=== PATIENT | female | born 1935 | race Caucasian/White ===

== ENCOUNTER 2017-09-25 19:40 | Observation (INO) | payer OTHER ==
[~2017-09-25] VITALS: Ht 157.5 cm; Wt 69.7 kg
[2017-09-25 20:39] LABS: APPEARANCE CLEAR ((CLEAR)); BILIRUBIN NEGATIVE; BLOOD SMALL; COLOR STRAW ((YELLOW)); GLUCOSE (STRIP) NEGATIVE; KETONES NEGATIVE; LEUKOCYTES NEGATIVE; NITRITE NEGATIVE; PROTEIN (STRIP) NEGATIVE; SPECIFIC GRAVITY 1.008 (1.000-1.030); UROBILINOGEN 0.2 MG/DL (0.2-1.0)
[2017-09-25 20:44] LABS: BASOPHIL (%) 0.7 % (0-1); EOSINOPHIL (%) 0.5 % (0-5); HEMOGLOBIN 11.4 G/DL (11.9-15.5); IMMATURE GRANULOCYTE (%) 0.5 % (0.0-0.7); LYMPHOCYTE (%) 15.3 % (15-42); LYMPHOCYTE COUNT 0.9 K/uL (1.0-2.8); MCH 28.5 PG (29.0-34.0); MCHC 31.7 G/DL (30.0-36.0); MONOCYTE (%) 9.6 % (3-12); MONOCYTE COUNT 0.6 K/uL (0-0.8); NEUTROPHIL (%) 73.4 % (45-76); NEUTROPHIL COUNT 4.4 K/uL (1.8-6.4); PLATELET COUNT 296 K/uL (156-360); RBC DIS.WIDTH-CV 13.1 % (11.8-14.6); RBC DIS.WIDTH-SD 43.3 % (39-53)
[2017-09-25 20:51] LABS: BACTERIA NONE SEEN /HPF; EPITHELIAL CELLS RARE /HPF; MUCUS NONE SEEN /LPF; RED BLOOD CELLS 0-5 /HPF (0-5); UCUL ADDED? NO; WHITE BLOOD CELLS 0-5 /HPF (0-5)
[2017-09-25 20:55] LABS: PTT 27.5 SEC (25-37)
[2017-09-25 20:56] LABS: CHLORIDE 102 mEq/L (99-109); POTASSIUM 4.2 mEq/L (3.7-5.4); SODIUM 135 mEq/L (136-147)
[2017-09-25 20:58] LABS: GLUCOSE 102 mg/dL (70-99)
[2017-09-25 21:02] LABS: GFR ESTIMATE (CALCULATED) 57 mL/min/; UREA NITROGEN (BUN) 18 mg/dL (9-23)
[2017-09-25 21:04] LABS: TROP-I INTERPRETATION NEGATIVE; TROPONIN-I < 0.01 ng/mL (0.0-0.30)
[2017-09-25] MEDS ORDERED: SIMVASTATIN20 MG PO (22:18)
[2017-09-25] MEDS ORDERED: COLACE100 MG PO (22:19)
[2017-09-25] MEDS ORDERED: [UNRECOGNIZED DRUG - OTHER] PO (22:19)
[2017-09-25] MEDS ORDERED: TYLENOL EXTRA500 MG PO (22:19)
[2017-09-25] MEDS ORDERED: METAMUCIL0.52 GM PO (22:19)
[2017-09-25] MEDS ORDERED: VITAMIN A8000 UNIT PO (22:19)
[2017-09-25] MEDS ORDERED: PROTONIX40 MG PO (22:19)
[2017-09-26 02:11] LABS: HDL CHOLESTEROL 69 MG/DL (Desirable>=50); LDL CHOLESTEROL 99 mg/dL (Desirable<100); NON-HDL CHOLESTEROL 118 mg/dL (Desirable<160); TOTAL CHOLESTEROL 187 mg/dL (Desirable<200); TRIGLYCERIDES 96 MG/DL (Normal: <150)
[2017-09-26 04:27] VITALS: BP 184/84
[2017-09-26 07:49] VITALS: BP 170/79
[2017-09-26 08:07] LABS: HEMOGLOBIN A1c (GLYCOHEMOGLOB) 5.4 % (Below 5.7)
[2017-09-26] MEDS ORDERED: ASPIRIN81 M2 PO (10:51)
[2017-09-26] MEDS ORDERED: XANAX0.5 MG PO (10:54)
[2017-09-26] MEDS ORDERED: CLOTRIMAZOLE15 GM TP (10:54)
[2017-09-26] MEDS ORDERED: LOPRESSOR25 MG PO ×2 (14:47→14:50)
== END 2017-09-26 11:51 | disposition home or self-care (01) ==
LOC: EME 19:40 → ENRESERV 23:46 → EDOF 23:53 → 5SOUTH 23:53 → ENRESERV 09-26 03:22 → 5SOUTH 09-26 04:14
PROVIDERS: Emergency Medicine; Internal Medicine
DX: R41.82 Altered mental status, unspecified (principal); R47.01 Aphasia; I16.0 Hypertensive urgency; I10 Essential (primary) hypertension; I65.23 Occlusion and stenosis of bilateral carotid arteries; E78.5 Hyperlipidemia, unspecified; K21.9 Gastro-esophageal reflux disease without esophagitis; Z88.0 Allergy status to penicillin; Z79.82 Long term (current) use of aspirin
CPT/HCPCS: 70450; 70551; 71045; 80048; 80061; 81003; 83036; 84484; 85025; 85610; 85730; 93005; 93306; 93880; 99281; 99285; G0378; J1644

== ENCOUNTER 2017-11-05 16:53 | Emergency (ER) | payer OTHER ==
[~2017-11-05] VITALS: Ht 160 cm; Wt 67.2 kg
[~2017-11-05 16:53] MED LIST: ASPIRIN81 M2 PO; CLOTRIMAZOLE15 GM TP; COLACE100 MG PO; LOPRESSOR25 MG PO; METAMUCIL0.52 GM PO; PROTONIX40 MG PO; SIMVASTATIN20 MG PO; TYLENOL EXTRA500 MG PO; VITAMIN A8000 UNIT PO; XANAX0.5 MG PO; [UNRECOGNIZED DRUG - OTHER] PO
[2017-11-05 18:58] LABS: APPEARANCE CLEAR ((CLEAR)); BILIRUBIN NEGATIVE; BLOOD NEGATIVE; COLOR COLORLESS ((YELLOW)); GLUCOSE (STRIP) NEGATIVE; KETONES NEGATIVE; LEUKOCYTES NEGATIVE; NITRITE NEGATIVE; PROTEIN (STRIP) NEGATIVE; SPECIFIC GRAVITY 1.005 (1.000-1.030); UCUL ADDED? NO; UROBILINOGEN 0.2 MG/DL (0.2-1.0)
[2017-11-05 19:15] LABS: BASOPHIL (%) 0.5 % (0-1); EOSINOPHIL (%) 0.3 % (0-5); HEMATOCRIT 35.2 % (36.0-46.0); HEMOGLOBIN 11.5 G/DL (11.9-15.5); IMMATURE GRANULOCYTE (%) 0.2 % (0.0-0.7); LYMPHOCYTE (%) 17.7 % (15-42); MCH 28.6 PG (29.0-34.0); MCHC 32.7 G/DL (30.0-36.0); MCV 87.6 FL (83-99); MONOCYTE (%) 8.8 % (3-12); MONOCYTE COUNT 0.5 K/uL (0-0.8); NEUTROPHIL (%) 72.5 % (45-76); NEUTROPHIL COUNT 4.2 K/uL (1.8-6.4); PLATELET COUNT 274 K/uL (156-360); RBC DIS.WIDTH-CV 12.6 % (11.8-14.6); RED BLOOD COUNT 4.02 M/uL (3.80-5.20); WHITE BLOOD COUNT 5.8 K/uL (4.1-10.2)
[2017-11-05 19:27] LABS: ALBUMIN 4.2 g/dL (3.2-4.8); CHLORIDE 98 mEq/L (99-109); POTASSIUM 4.2 mEq/L (3.7-5.4); SODIUM 134 mEq/L (136-147)
[2017-11-05 19:29] LABS: GLUCOSE 89 mg/dL (70-99)
[2017-11-05 19:30] LABS: TOTAL PROTEIN 7.2 g/dL (6.4-8.3)
[2017-11-05 19:31] LABS: TOTAL BILIRUBIN 0.5 mg/dL (0.0-1.0)
[2017-11-05 19:33] LABS: ALKALINE PHOSPHATASE 68 IU/L (3-129); CREATININE 0.9 mg/dL (0.6-1.3); GFR ESTIMATE (CALCULATED) > 59 mL/min/
[2017-11-05 19:34] LABS: UREA NITROGEN (BUN) 13 mg/dL (9-23)
[2017-11-05 19:35] LABS: AST (GOT) 19 IU/L (2-34)
[2017-11-05 19:36] LABS: ALT (GPT) 10 IU/L (3-49)
[2017-11-05 19:37] LABS: LIPASE 19 U/L (1.0-51.0)
[2017-11-05 19:44] LABS: TROP-I INTERPRETATION NEGATIVE; TROPONIN-I < 0.01 ng/mL (0.0-0.30)
[2017-11-05] MEDS ORDERED: ZOFRAN ODT4 MG PO (20:08)
[2017-11-05 20:31] VITALS: BP 147/79
== END 2017-11-05 20:32 | disposition home or self-care (01) ==
LOC: EME 16:53
PROVIDERS: Emergency Medicine
DX: R51 Headache (principal); C44.40 Unspecified malignant neoplasm of skin of scalp and neck; I10 Essential (primary) hypertension; E78.5 Hyperlipidemia, unspecified; K21.9 Gastro-esophageal reflux disease without esophagitis; F03.90 Unspecified dementia, unspecified severity, without behavioral disturbance, psychotic disturbance, mood disturbance, and anxiety
CPT/HCPCS: 70450; 80053; 81003; 83690; 84484; 85025; 93005; 99281; 99285